=== PATIENT | male | born 1940 | race Caucasian/White ===

== ENCOUNTER 2018-05-22 10:05 | Outpatient (CLI) | payer MEDICARE, BC ==
--- NOTE | 2018-05-22 10:40 | RAD ---
LEFT KNEE FOUR VIEWS: History: Knee pain. FINDINGS: There is severe arthritic change of the knee with marked medial compartment narrowing. There is charles lofemoral degenerative spurring which is minimal and some minimal lateral compartment degenerative ch lencho. No acute findings. IMPRESSION: Marked medial compartment joint space narrowing. POS: [id number]
== END 2018-05-22 10:06 | disposition home or self-care (01) ==
LOC: RAD 10:05
PROVIDERS: ATTEND Nurse Practitioner Family
DX: M17.12 Unilateral primary osteoarthritis, left knee (principal); M25.862 Other specified joint disorders, left knee